=== PATIENT | male | born 1930 | race Caucasian/White ===

== ENCOUNTER 2018-09-22 14:30 | Inpatient (IN) | payer MEDICARE ==
[~2018-09-22 14:30] MED LIST: ISOVUE-370 76%-LOCM 1 ML ONE
--- NOTE | 2018-09-22 15:05 | RAD ---
XR Chest 1 View Portable History: Chest pain Comparison: Radiograph 2007 Findings: Heart size mildly enlarged. No pneumothorax. No effusion. No acute osseous abnormality. Midline sternotomy wires. Impression: No acute intrathoracic abnormality.
[2018-09-22 15:18] LABS: #Eosinphils 0.1 thou/uL (0.0-0.7); #Lymphocytes 0.9 thou/uL (1.20-3.40); #Monocytes 0.5 thou/uL (0.11-0.59); #Neutrophils 8.6 thou/uL (1.40-6.50); %Basophils 0.2 % (0.0-1.0); %Eosinophils 0.9 % (0.0-10.0); %Lymphocytes 8.9 % (21.0-51.0); %Monocytes 4.7 % (0.0-10.0); %Neutrophils 85.3 % (42.0-75.0); Hemoglobin 15.1 g/dL (14.0-18.0); Mean Corpuscular HGB CONC 32.8 g/dL (32.0-36.0); Mean Corpuscular Hemoglobin 29.9 pg (27.0-31.0); Mean Corpuscular Volume 91.4 fL (78.0-98.0); Mean Platelet Volume 8.5 fL (7.4-10.4); Platelet Count 248 thou/uL (130-400); RBC Distribution Width 12.6 % (11.5-14.5); Red Blood Cell (RBC) Count 5.05 mill/uL (4.70-6.10)
[2018-09-22 15:42] LABS: ALT (SGPT) 35 U/L (8-55); AST (SGOT) 48 U/L (5-34); Albumin 4.5 g/dL (3.4-4.8); Alkaline Phosphatase 65 U/L (40-150); Anion Gap 15 mmol/L (10-20); BUN (Urea Nitrogen) 21 mg/dL (8.4-25.7); Bilirubin, Total 1.1 mg/dL (0.2-1.2); Calc. Creatinine Clearance 0 mL/min (70-130); Calcium 10.2 mg/dL (7.8-10.44); Carbon Dioxide 28 mmol/L (23-31); Chloride 94 mmol/L (98-107); Estimated GFR-MDRD 43; Globulin 2.8 g/dL (2.4-3.5); Glucose 118 mg/dL (83-110); Potassium 4.3 mmol/L (3.5-5.1); Protein, Total 7.3 g/dL (5.8-8.1); Sodium 133 mmol/L (136-145)
[2018-09-22] MEDS ORDERED: Ondansetron PF 4 MG/2 ML Vial ONE (16:19)
[2018-09-22 16:57] LABS: CK (CPK) 264 U/L (30-200); Lipase 57 U/L (8-78)
[2018-09-22] MEDS ORDERED: Morphine 4 MG/ML VIAL ONE (16:57)
--- NOTE | 2018-09-22 17:07 | CT ---
CT abdomen and pelvis with IV contrast HISTORY: Abdominal pain. COMPARISON: 11/16/2015. FINDINGS: Mild scarring at the lung bases. Stones within the gallbladder lumen. Large hemangioma the right liver lobe is again demonstrated. It now measures up to 7.7 cm greatest diameter, smaller than on the prior exam. Prominent calcification throughout the arterial structures. Degenerative briones ges lumbar spine. Dilated fluid and gas-filled loops of small bowel measuring up to 3.5 cm. Distal bowel is completely decompressed. Transition point may be within the right mid abdomen. No mass is visible. No free air or free fluid. IMPRESSION: High-grade mid small bowel obstruction. Cause is not apparent. Presumed adhesion. Cholelithiasis. Prominent atherosclerosis. Interval decrease in size of hepatic hemangioma.
[2018-09-22 17:28] LABS: Bilirubin Negative (Negative); Blood, Urine Negative (Negative); Clarity CLEAR (Clear); Glucose, Urine (Dipstick) Negative (Negative); Leukocyte Negative (Negative); Nitrite Negative (Negative); Protein, Urine (Dipstick) Negative (Neg-Trace); Specific Gravity, Urine 1.034 (1.002-1.036)
[2018-09-22] MEDS ORDERED: Lidocaine 4% Topical Sol 50 ML BOT ONE (18:13)
[2018-09-22] MEDS ORDERED: Benzocaine 20% Spray 60 ML CAN ONE (18:13)
--- NOTE | 2018-09-22 19:59 | RAD ---
EXAM: Single view of the abdomen HISTORY: Chest pain and vomiting COMPARISON: None FINDINGS: Single view of the abdomen shows a nonspecific, nonobstructive bowel gas pattern. Air is se en throughout the colon. A few nondistended air-filled loops of small bowel are seen in the mid upper abdomen. An NG tube is seen with its tip in the stomach. No suspicious calcifications are seen. The bones are unremarkable. IMPRESSION: Nonobstructive bowel gas pattern
[2018-09-22] MEDS ORDERED: Morphine 4 MG/ML VIAL SLOW IVP PRN (20:27)
[2018-09-22] MEDS ORDERED: Ondansetron PF 4 MG/2 ML Vial IVP PRN (20:27)
[2018-09-22] MEDS ORDERED: Acetaminophen 650 MG Suppository PR PRN (20:45)
[2018-09-22] MEDS ORDERED: Acetaminophen 325 MG TAB PO PRN (20:45)
[2018-09-22] MEDS ORDERED: Ondansetron ODT 4 MG TAB PO PRN (20:45)
[2018-09-22 21:00] VITALS: BMI 28.5
[2018-09-23 05:39] LABS: #Eosinphils 0.2 thou/uL (0.0-0.7); #Lymphocytes 1.4 thou/uL (1.20-3.40); #Monocytes 0.5 thou/uL (0.11-0.59); #Neutrophils 6.1 thou/uL (1.40-6.50); %Basophils 0.5 % (0.0-1.0); %Eosinophils 2.7 % (0.0-10.0); %Lymphocytes 17.3 % (21.0-51.0); %Neutrophils 73.6 % (42.0-75.0); Hemoglobin 13.7 g/dL (14.0-18.0); Mean Corpuscular HGB CONC 33.1 g/dL (32.0-36.0); Mean Corpuscular Hemoglobin 30.2 pg (27.0-31.0); Mean Corpuscular Volume 91.2 fL (78.0-98.0); Mean Platelet Volume 8.8 fL (7.4-10.4); Platelet Count 222 thou/uL (130-400); RBC Distribution Width 12.6 % (11.5-14.5); Red Blood Cell (RBC) Count 4.55 mill/uL (4.70-6.10); White Blood Cell (WBC) Count 8.3 thou/uL (4.8-10.8)
[2018-09-23 05:48] LABS: Anion Gap 16 mmol/L (10-20); BUN (Urea Nitrogen) 17 mg/dL (8.4-25.7); Calc. Creatinine Clearance 47 mL/min (70-130); Carbon Dioxide 24 mmol/L (23-31); Chloride 98 mmol/L (98-107); Estimated GFR-MDRD 51; Glucose 107 mg/dL (83-110); Potassium 3.9 mmol/L (3.5-5.1); Sodium 134 mmol/L (136-145)
[2018-09-23] MEDS: Sodium Chloride 0.9% 1,000 ML IV SCH ×2 (05:53→05:54)
--- NOTE | 2018-09-23 08:28 | HP ---
PRIMARY CARE PHYSICIAN: Antoine Jackson MD CODE STATUS: Full code. TIME OF EVALUATION: CHIEF COMPLAINT: Abdominal pain, nausea and vomiting. HISTORY OF PRESENT ILLNESS: This is an 87-year-old male patient with past medical history of hypothyroidism, GERD, seasonal allergies, hypertension, came to the hospital after having an episode of nausea associated with vomiting, epigastric pain. Symptoms were severe. The abdomen is distended. Last time he went to the bathroom to have a bowel movement was Saturday morning. The symptoms were [id number], initially thought they were cardiac in origin. However, the patient has been diagnosed with small bowel obstruction and is being admitted for it. The patient has improved the symptoms. REVIEW OF SYSTEMS: CONSTITUTIONAL: No fever, chills, or generalized weakness. RESPIRATORY: No cough, sputum production, or shortness of breath. CARDIOVASCULAR: No chest pain. GASTROINTESTINAL: The patient had nausea, vomiting. No diarrhea. Last stool was Saturday. The patient had abdominal pain and distention. 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 GENITOURINARY: No burning on urination. EXTREMITIES: No leg swelling. All other systems were reviewed and negative except for the findings mentioned above. PAST MEDICAL HISTORY: As mentioned in the HPI. PAST SURGICAL HISTORY: CABG x3 vessels, appendectomy, tonsillectomy. PSYCHIATRIC HISTORY: The patient has a history of depression. SOCIAL HISTORY: The patient drinks socially 3-4 times per week. Former tobacco user, quit more than 10 years ago. The patient lives at home with and daughter. KNOWN ALLERGIES: Mycins, penicillin, and sulfa. REPORTED MEDICATIONS: 1. Aspirin. 2. Levothyroxine. 3. Pantoprazole. 4. Wellbutrin. PHYSICAL EXAMINATION: VITAL SIGNS: Blood pressure 150/75 with heart rate 92, respiratory rate 20, temperature 97.9, pain was 2/10, oxygen saturation was 97% on room air. GENERAL APPEARANCE: The patient is alert, oriented, with an NG tube placement, in mild distress due to symptoms. HEENT: Eyes, normal conjunctivae. Moist oral mucosa. Anicteric. No JVD. RESPIRATORY: Bilateral air entry. No rales or wheezes. Symmetric expansion. CARDIOVASCULAR: Normal rate and regular rhythm. No murmurs. No gallop. No edema. ABDOMEN: Distended, soft with diffuse bowel sounds. MUSCULOSKELETAL: Baseline range of motion and strength. No tenderness. SKIN: Warm, intact. No pallor. No rash. No redness. Capillary refill seems to be intact. NEUROLOGIC: No evidence of any new focal weakness. Cranial nerves seem to be intact. PSYCH: The patient is in good mood. No anxiety. Optimal judgment. IMAGING STUDIES: EKG was reviewed. The patient has normal sinus rhythm with a rate of 32, [place] 206, QRS 146, RBBB, and left anterior fascicular blocks which bifascicular block. Chest x-ray was reviewed. The patient has no acute intrathoracic abnormalities. Abdomen and pelvis CT was reviewed. The patient has high-grade mid small-bowel obstruction, cause is non-apparent, presume adhesion, cholelithiasis, prominent atherosclerosis syndrome with decrease in size of hepatic hemangioma. Abdomen x-ray was done and showed no obstructive bowel gas pattern. LABORATORY DATA: Reviewed. The patient has a white count 10.0, hemoglobin 15.1, MCV 91.4, platelet count 248. Chemistry; sodium 133, potassium 4.3, chloride 94, carbon dioxide 28, anion gap 15, BUN 21, creatinine 1.55, GFR 43, glucose 118, lactic acid 2.0, calcium 10.2, total bilirubin 1.1, AST 48, ALT 35, alkaline phosphatase 65. CK 264, troponin 0.011. Beta-natriuretic peptide 65.3. Serum total protein 7.3, albumin 4.5, globulin 2.8, zqwexjf-[id number]-aftfvuuh ratio is 1.6, lipase 57. Urine was done, and was negative. ASSESSMENT AND PLAN: The patient will be placed in the hospital with the following medical problems: 1. Small-bowel obstruction. The patient has NG tube, has had some improvement of the symptoms. We will monitor overnight. Hopefully, we do not have to do any surgical intervention. Surgery will be called if the patient is not improving. Symptoms seem to be caused by bowel obstruction from adhesions from previous appendectomy. 2. Hyponatremia, sodium 133, this is mild, we will monitor, we will replace as needed. 3. Chronic kidney disease. The patient has a creatinine 1.55, GFR 43, so this is stage 3, this has been present from previous records. 4. Hypothyroidism. We will continue hormone replacement. 5. Uncontrolled hypertension. The patient has a systolic blood pressure of 150, on presentation. We will reconcile home medications. Adjust as needed. 6. Deep venous thrombosis prophylaxis. Job ID: [id number]
--- NOTE | 2018-09-23 08:43 | PDOC.PN ---
- Subjective Encounter Start Date: 09/23/18 Encounter Start Time: 08:41 Mr. Leal was seen today in follow-up of small bowel obstruction. He says he feels better today. He does not have any abdominal pain or nausea. He feels his abdomen is close to it's usual size. He has not had a bowel movement, but says he feels like he may need to soon. - Objective Resuscitation Status - Order Detail: 09/22/18 20:45 Resuscitation Status Routine Resuscitation Status: FULL: Full Resuscitation MAR Reviewed: Yes Vital Signs & Weight: Vital Signs (12 hours) Temp Pulse Resp BP Pulse Ox 09/23/18 04:00 98.3 F 82 16 125/68 94 L 09/23/18 00:00 98.4 F 88 16 132/75 92 L 09/22/18 21:30 93 L Weight Weight 188 lb 1.6 oz I&O: 09/22/18 09/23/18 09/24/18 06:59 06:59 06:59 Intake Total 1465 Output Total 825 Balance 640 Result Diagrams: 09/23/18 04:37 09/23/18 04:37 Phys Exam - Physical Examination HEENT: PERRLA Respiratory: no wheezing, no rales, no rhonchi, clear to auscultation bilateral Cardiovascular: RRR, no significant murmur, no rub Gastrointestinal: soft, positive bowel sounds + distended, tympanic to percussion Musculoskeletal: no edema, pulses present Dx/Plan (1) SBO (small bowel obstruction) Code(s): K56.609 - UNSP INTESTNL OBST, UNSP TO PARTIAL VERSUS COMPLETE OBST Status: Acute (2) Hypertension Code(s): I10 - ESSENTIAL (PRIMARY) HYPERTENSION Status: Chronic - Plan * SBO- he is clinically improved. His KUB last night demonstrated a non- obstructive gas pattern * Will give a Fleets enema, and if his NG tube output has decreased will give a trial at clamping it * If symptoms return then will consult Surgery * HTN- continue PRN medications.
[2018-09-23] MEDS ORDERED: Fleet Enema 133 ML BOT PR SCH (08:45)
[2018-09-23] MEDS ORDERED: Sodium Chloride 0.9% 1,000 ML IV SCH (08:45)
[2018-09-23] MEDS ORDERED: hydrALAZINE 20 MG/ML VIAL SLOW IVP PRN (08:46)
[2018-09-23] MEDS: Enoxaparin Sodium 40 MG/0.4 ML SYRINGE SC SCH (09:16)
[2018-09-24] MEDS: Enoxaparin Sodium 40 MG/0.4 ML SYRINGE SC SCH (08:47)
[2018-09-24 11:20] VITALS: BP 160/77; TEMP 97.9
--- NOTE | 2018-09-25 01:57 | DIS ---
DATE OF ADMISSION: 09/22/2018 DATE OF DISCHARGE: 09/24/2018 DISCHARGE DIAGNOSES: 1. Small bowel obstruction, resolving spontaneously. 2. Abdominal pain secondary to #1, resolved. 3. Nausea and vomiting secondary to #1, resolved. 4. Hyponatremia, mild. 5. Chronic kidney disease, stage 3. 6. Hypothyroidism, stable. CONSULTATIONS: None. PERTINENT LAB AND X-RAY FINDINGS: Sodium ranged between 133 to 134. Creatinine ranged between 1.32 to 1.55. Estimated GFR ranged between 43 to 51. Lactic acid level 2.0. AST 48, ALT of 35, alkaline phosphatase 65, total CK of 264. Lipase 57. CBC showed a hemoglobin ranging between 13.7 to 15.1. Urinalysis negative. Portable chest x-ray dated 09/22/2018, showed no acute cardiopulmonary process. CT of the abdomen and pelvis dated 09/22/2018, showed high-grade mid small bowel obstruction. Abdominal radiographs dated 09/22/2018, showed nonobstructive bowel gas pattern. HOSPITAL COURSE: The patient was admitted to the surgical floor after presenting with abdominal pain with associated nausea and vomiting with CT imaging of the abdomen and pelvis showing evidence of small bowel obstruction. The patient underwent NG tube placement in the emergency room as well as given Fleets Enema and stool softeners. The patient was able to successfully pass stool without complication with overall decreased abdominal distention and pain. Abdominal radiographs showed no evidence of obstructive bowel gas pattern and the patient clinically stabilized with conservative management. NG tube was clamped at which point the patient tolerated clear liquids without difficulty. The patient received general supportive management and stabilized by the time of discharge. I have examined the patient at the time of discharge and discussed followup instructions. The patient verbalized understanding and in agreement, ready for discharge on 09/24/2018. DISCHARGE MEDICATIONS: 1. Enteric-coated aspirin 325 mg p.o. daily. 2. Wellbutrin XL 75 mg p.o. daily. 3. Synthroid 250 mcg p.o. daily. 4. Protonix 40 mg p.o. daily. FOLLOWUP: The patient may follow up with his primary care provider, Dr. Antoine Jackson within 7 days of discharge. CONDITION ON DISCHARGE: Stable. ACTIVITY: Ad-gautam. DIET: Heart healthy. CODE STATUS: Full. DISPOSITION: Home, 09/24/2018. Job ID: [id number]
== END 2018-09-24 13:37 | disposition home or self-care (01) | DRG 389 ==
LOC: ERS 14:30 → SURG A 18:42
PROVIDERS: ADMIT Family Medicine; ATTEND Family Medicine
DX: K56.609 Unspecified intestinal obstruction, unspecified as to partial versus complete obstruction (principal); E87.1 Hypo-osmolality and hyponatremia; E03.9 Hypothyroidism, unspecified; K21.9 Gastro-esophageal reflux disease without esophagitis; J30.2 Other seasonal allergic rhinitis; F32.9 Major depressive disorder, single episode, unspecified; N18.3 Chronic kidney disease, stage 3 (moderate); I12.9 Hypertensive chronic kidney disease with stage 1 through stage 4 chronic kidney disease, or unspecified chronic kidney disease; Z79.82 Long term (current) use of aspirin; Z95.1 Presence of aortocoronary bypass graft; Z87.891 Personal history of nicotine dependence; Z88.0 Allergy status to penicillin; Z79.899 Other long term (current) drug therapy; Z88.2 Allergy status to sulfonamides
CPT/HCPCS: 36415; 71045; 74018; 74177; 80048; 80053; 81003; 82550; 83605; 83690; 83880; 84484; 85025; 93005; 94760; J1650; J2270; J2405; Q9966

== ENCOUNTER 2019-02-18 13:21 | Outpatient (CLI) | payer MEDICARE ==
--- NOTE | 2019-02-18 13:53 | RAD ---
EXAM: Chest 2 views: HISTORY: Chest pain regurgitation COMPARISON: 09/22/2018 FINDINGS: Postop sternotomy. Heart size:Upper range of normal. Lungs:Mild scattered linear and interstitial chronic changes. Atherosclerotic changes of the aorta. No confluent pneumonia, overt edema, pleural effusion, pneumothorax, or other significant acute proce ss. At least grade 1 anterolisthesis of what appears to be T11-T12 vertebral level. IMPRESSION: Stable chronic changes. Atherosclerosis of the aorta. No acute intrathoracic disease.
== END 2019-02-18 13:22 | disposition home or self-care (01) ==
LOC: RAD 13:21
PROVIDERS: ATTEND Internal Medicine Pulmonary Disease
DX: R06.00 Dyspnea, unspecified (principal); I70.0 Atherosclerosis of aorta
CPT/HCPCS: 71046